=== PATIENT | female | born 1995 | race Caucasian/White ===

== ENCOUNTER → 2022-07-20 | Outpatient (CLI) | payer BC ==
[2022-07-20 12:33] LABS: CLUE CELLS NOT OBSERVED (Not Observd)
== END ==
LOC: LAB 12:11
PROVIDERS: Nurse Practitioner Family
DX: R10.2 Pelvic and perineal pain (principal)
CPT/HCPCS: Q0111

== ENCOUNTER 2024-05-30 00:07 | Emergency (ER) | payer BC ==
[~2024-05-30] VITALS: Ht 167.6 cm; Wt 84.1 kg
[2024-05-30] MEDS ORDERED: ONDANSETRON HYDR4 MG PO (00:19)
[2024-05-30] MEDS ORDERED: RIZATRIPTAN BEN10 MG PO (00:19)
[2024-05-30] MEDS ORDERED: VERAPAMIL120 MG PO (00:20)
[2024-05-30] MEDS ORDERED: Ketorolac 30 MG/ML VIAL IV ONE (00:45)
[2024-05-30] MEDS ORDERED: NS 1,000 ML IV SCH (00:45)
[2024-05-30] MEDS ORDERED: Ondansetron 4 MG/2 ML VIAL IV ONE (00:45)
[2024-05-30] MEDS ORDERED: diphenhydrAMINE 50 MG/ML 1 ML VIAL IV ONE (00:45)
[2024-05-30 00:52] LABS: BASO # 0.01 K/mm3 (0.02-0.10); EOS # 0.09 K/mm3 (0.04-0.40); EOS % 1.4 % (1.0-5.0); HEMATOCRIT 40.6 % (37.0-47.0); HEMOGLOBIN 13.3 g/dL (12.5-16.0); LYMPH# 2.49 K/mm3 (1.50-4.00); MEAN CELL VOLUME 91 fl (78-100); MEAN CORPUSCULAR HEMOGLOBIN 30 pg (27-31); MEAN CORPUSCULAR HGB CONC 33 g/dL (33-37); MEAN PLATELET VOLUME 10.2 fl (7.4-10.4); MONO # 0.38 K/mm3 (0.20-0.80); NEU # 3.59 K/mm3 (1.40-6.50); PLATELET COUNT 197 K/mm3 (130-400); RED BLOOD COUNT 4.44 M/mm3 (4.10-5.30); RED CELL DISTRIBUTION WIDTH 12.5 % (11.5-14.5); WHITE BLOOD COUNT 6.6 K/mm3 (4.8-10.8)
[2024-05-30 00:52] LABS: URINE WBC 0 /hpf (0-3)
[2024-05-30 00:59] LABS: ALBUMIN 4.3 g/dL (3.5-5.0)
[2024-05-30 01:00] LABS: CALCIUM 8.9 mg/dL (8.3-10.5)
[2024-05-30 01:03] LABS: PH-URINE 7.5 (5.0 - 8.0); URINE APPEARANCE CLEAR (CLEAR); URINE BILIRUBIN NEGATIVE (NEGATIVE); URINE BLOOD NEGATIVE (NEGATIVE); URINE COLOR YELLOW (YELLOW); URINE GLUCOSE NEGATIVE (NEGATIVE); URINE KETONE NEGATIVE (NEGATIVE); URINE LEUKOCYTE ESTERASE NEGATIVE (NEGATIVE); URINE NITRATE NEGATIVE (NEGATIVE); URINE PROTEIN(semi-quant) NEGATIVE (NEGATIVE)
[2024-05-30 01:03] LABS: TOTAL BILIRUBIN 0.3 mg/dL (0.2-1.2)
[2024-05-30] MEDS ORDERED: Morphine 4 MG/ML VIAL IV ONE ×2 (01:30→02:30)
[2024-05-30] MEDS ORDERED: KETOROLAC10 MG PO (02:28)
[2024-05-30] MEDS ORDERED: Orphenadrine 60 MG/2ML AMP IV ONE (02:30)
[2024-05-30 03:05] VITALS: BP 95/64
== END 2024-05-30 03:07 | disposition home or self-care (01) ==
LOC: ED 00:07
PROVIDERS: Family Medicine
DX: G43.909 Migraine, unspecified, not intractable, without status migrainosus (principal); F17.210 Nicotine dependence, cigarettes, uncomplicated
CPT/HCPCS: J1200; J1885; J2270; J2360; J2405; J7030